=== PATIENT | female | born 1935 | race Caucasian/White ===

== ENCOUNTER 2016-07-01 12:25 | Outpatient (CLI) | payer MEDICARE, OTHER | END 2016-07-01 12:26 | disposition home or self-care (01) | DX: R07.9 Chest pain, unspecified (principal) ==

== ENCOUNTER 2016-07-16 08:54 | Outpatient (CLI) | payer MEDICARE, OTHER ==
--- NOTE | 2016-07-16 10:29 | Ultrasound Report ---
RIGHT UPPER QUADRANT ULTRASOUND: 07/16/2016 CLINICAL INDICATION: Nausea, right-sided pain. TECHNIQUE: Real-time scanning was performed with health and safety representative static images obtained. FINDINGS: The liver measures 12.2 cm. Hepatic echogenicity is mildly heterogeneous. No focal paren chymal lesion or intrahepatic biliary dilatation is appreciated. The common bile duct measures 4 mm. The gallbladder is normal. The right kidney measures 10.1 cm, and demonstrates a small angiomyolip christine and cortical cysts. No hydronephrosis is present. No free fluid is seen. IMPRESSION: NO EVIDENCE OF CHOLELITHIASIS OR BILIARY OBSTRUCTION. JOB #: [id number] EXT JOB #:[id number]
== END 2016-07-16 08:55 | disposition home or self-care (01) ==
LOC: DI 08:54
PROVIDERS: ATTEND Internal Medicine
DX: R11.0 Nausea (principal)
CPT/HCPCS: 76705

== ENCOUNTER 2017-02-08 09:22 | Outpatient (CLI) | payer MEDICARE, OTHER ==
--- NOTE | 2017-02-10 15:52 | Mammography Report ---
DIGITAL SCREENING MAMMOGRAM: 02/08/2017 COMPARISON: 02/07/2016, 02/18/2015, 02/08/2014, 02/14/2013, 02/12/2012, 03/06/2011, 02/13/2010. TECHNIQUE: Bilateral digital CC and MLO projections. FINDINGS: The breast tissue is heterogeneously dense. Post-surgical changes in the right breast and a nodular density in the upper-outer left breast are stable. Vascular calcifications are present. No new dominant mass, architectural distortion, skin thickening, suspicious microcalcifications or in terval change. IMPRESSION: NEGATIVE. BIRADS CATEGORY: 1, NEGATIVE. SUGGEST ROUTINE FOLLOW UP IN 12 MONTHS UNLESS THERE IS A CLINICAL CHANGE. STANDARD QUALIFYING STATEMENTS 1. This examination was reviewed with the aid of Computed-Aided Detection (CAD). 2. A negative or benign imaging report should not delay biopsy if clinically suspicious findings are present. Consider surgical consultation if warranted. More than 5% of cancers are not identified b y imaging. 3. Dense breasts may obscure an underlying neoplasm. JOB #: [id number] EXT JOB #:[id number]
== END 2017-02-08 09:23 | disposition home or self-care (01) ==
LOC: DI.N 09:22
PROVIDERS: ATTEND Internal Medicine
DX: Z12.31 Encounter for screening mammogram for malignant neoplasm of breast (principal)
CPT/HCPCS: 77067

== ENCOUNTER 2018-02-09 10:38 | Outpatient (CLI) | payer MEDICARE, OTHER ==
--- NOTE | 2018-02-10 09:20 | Mammography Report ---
Reason: SCREENING MAMMO Procedure Date: 02/09/2018 Accession Number: [id number] / [id number] Procedure: MGN - Screening Mammo Dig Bilat CPT Code: FULL RESULT: EXAM: Screening Mammo Dig Bilat DATE: 02/09/2018 11:06 AM CLINICAL HISTORY: Screening encounter. History of benign bilateral breast biopsies. TECHNIQUE: Bilateral CC and MLO views were obtained. COMPARISON: 02/08/2017 through 02/08/2014. FINDINGS: The breasts demonstrate heterogeneously dense fibroglandular parenchyma bilaterally. Postsurgical changes are seen in the right breast. Typically benign coarse calcification is noted in the left breast. A well-circumscribed hypodense 1.3 cm mass in the upper outer left breast quadrant remains partially obscured but is stable dating back to 2013 and therefore typically benign. No suspicious masses, clustered microcalcifications, or regions of architectural distortion are identified. IMPRESSION: Benign findings RECOMMENDATION: Routine annual screening unless otherwise clinically indicated. BIRADS CATEGORY 2: Benign findings STANDARD QUALIFYING STATEMENTS: 1. This examination was reviewed with the aid of Computer-Aided Detection (CAD). 2. A negative or benign imaging report should not preclude biopsy if clinically suspicious findings are present. 3. Dense breasts may obscure an underlying neoplasm. 4. This examination was reviewed without the aid of 3D breast imaging (tomosynthesis).
== END 2018-02-09 10:39 | disposition home or self-care (01) ==
LOC: DI.N 10:38
PROVIDERS: ATTEND Internal Medicine
DX: Z12.31 Encounter for screening mammogram for malignant neoplasm of breast (principal)
CPT/HCPCS: 77067

== ENCOUNTER 2019-01-18 11:30 | Day surgery (SDC) | payer MEDICARE, OTHER ==
[2019-01-18] MEDS ORDERED: fentaNYL 250 MCG/5 ML VIAL IVP ONE (11:31)
[2019-01-18] MEDS ORDERED: MIDAZOLAM 2 MG/2 ML VIAL IVP ONE (11:31)
[2019-01-18] MEDS ORDERED: LACTATED RINGERS 1,000 ML IV ONE ×2 (12:08→13:48)
[2019-01-18 15:34] VITALS: BP 115/61
== END 2019-01-18 11:31 | disposition home or self-care (01) ==
LOC: SDS 11:30
PROVIDERS: ATTEND Surgery
PROC: 0DJD8ZZ Inspection of Lower Intestinal Tract, Via Natural or Artificial Opening Endoscopic (ICD-10-PCS; principal; 2019-01-18 13:00)
DX: Z12.11 Encounter for screening for malignant neoplasm of colon (principal); K64.8 Other hemorrhoids; K64.4 Residual hemorrhoidal skin tags; I10 Essential (primary) hypertension; Z80.0 Family history of malignant neoplasm of digestive organs; Z87.891 Personal history of nicotine dependence
CPT/HCPCS: G0105; J3010; J7120

== ENCOUNTER 2019-02-14 10:16 | Outpatient (CLI) | payer MEDICARE, OTHER ==
--- NOTE | 2019-02-14 13:26 | XRAY Report ---
Reason: EXAMINING CUCUM Procedure Date: 02/14/2019 Accession Number: [id number] / [id number] Procedure: FL - Barium Enema w/Air CPT Code: Final Report FULL RESULT: EXAM: BARIUM ENEMA EXAM DATE: 02/14/2019 10:47 AM. CLINICAL HISTORY: Examining cecum. COMPARISONS: 02/14/2019 10:47 AM. TECHNIQUE: Routine double contrast barium enema. Fluoroscopy Time: 52 seconds. Number of Images: 65. FINDINGS: Morphology: Normal distention and anatomy. Colon inadequately visualized from the rectum to the cecum on double contrast phase due to incomplete emptying of the colon. Mucosa: Normal. No diverticula, masses, or strictures. No filling defects evident. Terminal Ileum: Mild ileocecal reflux present. No mucosal abnormalities evident. Other: On supine spot view of the cecum, a circular filling defect is seen near the ileocecal valve, image 38. This may represent a cecal polyp. IMPRESSION: Barium enema suggestive of cecal polyp. RADIA
[2019-02-14] MEDS ORDERED: DIATR MEGLU/DIATRIZOATE SODIUM 120 ML BOTTLE PO ONE (17:19)
[2019-02-14] MEDS ORDERED: BARIUM SULFATE 1,900 ML BOTTLE RC ONE (17:19)
== END 2019-02-14 10:17 | disposition home or self-care (01) ==
LOC: DI 10:16
PROVIDERS: ATTEND Surgery
DX: Z12.11 Encounter for screening for malignant neoplasm of colon (principal)
CPT/HCPCS: 74280; A9270; Q9963

== ENCOUNTER 2019-02-20 10:59 | Outpatient (CLI) | payer MEDICARE, OTHER ==
--- NOTE | 2019-02-20 11:55 | Mammography Report ---
Reason: ROUTINE MAMMO Procedure Date: 02/20/2019 Accession Number: [id number] / [id number] Procedure: MGN - Screening Mammo Dig Bilat CPT Code: Final Report FULL RESULT: EXAM: Screening Mammo Dig Bilat DATE: 02/20/2019 11:28 AM CLINICAL HISTORY: History of bilateral benign biopsies. For routine screening TECHNIQUE: (B) - Bilateral CC and MLO views were obtained. COMPARISON: 02/09/2018, 02/08/2017, 02/07/2016, 02/18/2015, 02/08/2014, 02/14/2013, 02/12/2012, 03/06/2011, 02/13/2010. PARENCHYMAL PATTERN: (D) - The breasts demonstrate heterogeneously dense fibroglandular parenchyma bilaterally. FINDINGS: No significant interval change. There are no suspicious masses, calcifications, or areas of distortion. A nodular density in the upper outer left breast is unchanged. IMPRESSION: Negative examination. BI-RADS category 1. RECOMMENDATION: (ANNUAL) - Recommend routine annual screening mammography. BI-RADS CATEGORY: (1) - Negative. STANDARD QUALIFYING STATEMENTS: 1. This examination was not reviewed with the aid of Computer-Aided Detection (CAD). 2. A negative or benign imaging report should not preclude biopsy if clinically suspicious findings are present. 3. Dense breasts may obscure an underlying neoplasm. 4. This examination was reviewed without the aid of 3D breast imaging (tomosynthesis).
== END 2019-02-20 11:00 | disposition home or self-care (01) ==
LOC: DI.N 10:59
PROVIDERS: ATTEND Internal Medicine
DX: Z12.31 Encounter for screening mammogram for malignant neoplasm of breast (principal)
CPT/HCPCS: 77067

== ENCOUNTER 2021-05-07 08:48 | Outpatient (CLI) | payer MEDICARE, OTHER ==
--- NOTE | 2021-05-08 11:36 | Mammography Report ---
BILATERAL DIGITAL SCREENING MAMMOGRAM 3D/2D: 05/07/2021 CLINICAL: Routine screening. Comparison is made to exams dated: 02/20/2019 mammogram, 02/09/2018 mammogram, 02/08/2017 mammogram, 1 04/09/2015 mammogram, 02/18/2015 mammogram, and 02/08/2014 mammogram - [facility]. Th e tissue of both breasts is heterogeneously dense. This may lower the sensitivity of mammography. There is a benign calcification in the left breast. No significant masses, calcifications, or other findings are seen in either breast. There has been no significant interval change. IMPRESSION: BENIGN There is no mammographic evidence of malignancy. A 1 year screening mammogram is recommended. This exam was interpreted at Station ID: [id number]. NOTE: For mammograms, a report in lay terms will be sent to the patient. Approximately 15% of breast malignancies will not be visualized mammographically. In the management of a palpable breast mass, a negative mammogram must not discourage biopsy of a clinically suspicious lesion. Electronically Signed By: Raven argueta/lucrecia:05/07/2021 09:47:48 ACR BI-RADS Category 2: Benign Finding(s) 3342F PARENCHYMAL PATTERN: (D) - The breast(s) demonstrate(s) heterogeneously dense fibroglandular macy thomas. BI-RADS CATEGORY: (2) - 2 RECOMMENDATION: (ANNUAL) - Recommend routine annual screening mammography. [id number] 1 year screening LATERALITY: (B)
== END 2021-05-07 08:49 | disposition home or self-care (01) ==
LOC: DI.N 08:48
PROVIDERS: ATTEND Internal Medicine
DX: Z12.31 Encounter for screening mammogram for malignant neoplasm of breast (principal)

== ENCOUNTER 2021-07-10 06:59 | Emergency (ER) | payer MEDICARE, OTHER ==
[2021-07-10] MEDS ORDERED: diltiaZEM INJ 5 MG/ML VIAL IVP STA (07:16)
--- NOTE | 2021-07-10 07:19 | ED Physician Documentation ---
PD HPI CHEST PAIN - Stated complaint Stated Complaint: CHEST PAIN - Chief complaint Chief Complaint: Cardiac - History obtained from History obtained from: Patient - Additional information Additional information: This is an 86-year-old woman with history of SVT, PVCs, PACs, and hypercholesterolemia. She has had positive stress test in the past but has been cathed in the past with clean coronaries per her but the last one was in 2008 in [place]. For the last 2-1/2 weeks or so she has had on and off mild chest pressure and shortness of breath. Its been more notable over the last day or so. Has been associated with heavy palpitations. She describes a chest pressure radiating to the back. It is worse with exertion and she is short of breath with it. It is also worse with deep breathing. She has no history of A. fib. Denies pedal edema or calf pain. She does note an injury before this all started, weeks ago she was replacing a light bulb and had to stretch to get up that high. It did not hurt at the time but her symptoms started that evening. Review of Systems Ten Systems: 10 systems reviewed and negative Constitutional: reports: Fatigue. denies: Sweats Nose: reports: Rhinorrhea / runny nose (She did 2 weeks ago but gone) Cardiac: reports: Chest pain / pressure, Palpitations. 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, Hysterectomy HEENT: Cataracts, Tonsil/Adenoidectomy, Other - Present Medications Home Medications: Ambulatory Orders Medication Instructions Recorded Confirmed Aspirin [Aspir 81] 81 mg PO DAILY 05/01/14 07/10/21 Levothyroxine Sodium [Synthroid] 125 mcg PO DAILY 05/01/14 07/10/21 Pravastatin Sodium 20 mg PO DAILY 05/01/14 07/10/21 Dabigatran [Pradaxa] 150 mg PO BID #120 cap 07/10/21 Losartan [Cozaar] 50 mg PO DAILY 07/10/21 07/10/21 diltiaZEM CD [Cardizem Cd] 120 mg PO DAILY #30 cap 07/10/21 - Allergies Allergies/Adverse Reactions: Allergies Allergy/AdvReac Type Severity Reaction Status Date / Time neomycin sulfate * Allergy Rash Verified 07/10/21 07:12 [From Neosporin ([id number])] Latex, Natural Rubber AdvReac Rash Verified 07/10/21 07:12 PD ED PE NORMAL - Vitals Vital signs reviewed: Yes (Rapid and irregular, A. fib on the monitor) - General General: Alert and oriented X 3, No acute distress - HEENT HEENT: PERRL, EOMI - Neck Neck: Supple, no meningeal sign, No bony TTP - Cardiac Cardiac: Other (Rapid and irregular, no murmur) - Respiratory Respiratory: No respiratory distress, Clear bilaterally - Abdomen Abdomen: Normal bowel sounds, Soft, Non tender - Back Back: No CVA TTP, No spinal TTP - Derm Derm: Normal color, Warm and dry - Extremities Extremities: No edema, No calf tenderness / cord - Neuro Neuro: Alert and oriented X 3, Normal speech Results - Vitals Vitals: Vital Signs - 24 hr 07/10/21 07/10/21 07/10/21 07:07 07:25 07:42 Temperature 36.4 C L Heart Rate 123 H 70 77 Respiratory 20 19 Rate Blood Pressure 141/87 H 87/55 L O2 Saturation 98 96 07/10/21 07/10/21 07/10/21 08:03 08:30 08:58 Temperature Heart Rate 80 96 82 Respiratory 18 24 19 Rate Blood Pressure 105/60 102/72 103/63 O2 Saturation 98 97 97 Oxygen O2 Source Room air - EKG (time done) 0708 Rate: Rate (enter#) (123) Rhythm: Atrial fibrillation Gasquet: Normal QRS: Normal Ischemia: Q waves (Q waves anteriorly). No: ST elevation c/w ischemia, ST depression Compare to prior EKG: Unchanged from prior EKG (Q waves are pre-existing compared to last EKG on the chart in 2017; A. fib is new) Computer interpretation: Agree with computer - Labs Labs: Laboratory Tests 07/10/21 07/10/21 07/10/21 07:11 07:11 07:11 WBC 8.7 RBC 3.76 L Hgb 12.0 Hct 35.8 L MCV 95.2 MCH 31.9 H MCHC 33.5 RDW 13.2 Plt Count 288 MPV 10.1 Neut # (Auto) 7.5 H Lymph # (Auto) 0.5 L Reynolds # (Auto) 0.7 Eos # (Auto) 0.0 Baso # (Auto) 0.0 Absolute Nucleated RBC 0.00 Nucleated RBC % 0.0 Sodium 135 Potassium 4.1 Chloride 101 Carbon Dioxide 24 Anion Gap 10.0 BUN 23 H Creatinine 0.6 Estimated GFR (MDRD) 95 Glucose 130 H Calcium 9.3 Magnesium 2.1 Total Bilirubin 1.0 AST 33 ALT 36 Alkaline Phosphatase 62 Troponin I High Sens 6.3 Total Protein 8.5 H Albumin 3.9 Globulin 4.6 H Albumin/Globulin Ratio 0.8 L - Rads (name of study) CT Chest PE protocol Radiology: EMP read contemporaneously PD MEDICAL DECISION MAKING - ED course ED course: 86-year-old woman presents with rapid atrial fibrillation with chest pain radiating to the neck. EKG is not ischemic. She has some old Q waves but these were present on prior EKG in 2017. After the administration of 10 mg of IV diltiazem she was rate controlled in the 80s and 90s but this did not improve her pain particularly. There was a pleuritic nature to her pain and given the new onset A. fib a CT of the chest was done with findings of atelectasis and small pleural effusions but no evidence of PE. Given the time course I think the negative high-sensitivity troponin rules her out for ACS. She was not offered cardioversion as she has been symptomatic for up to 2-1/2 weeks. We will start anticoagulation noting that her CHADS-VASC Score was 4 points. Discussed need for follow-up with PCP and further work-up. Departure - Departure Disposition: Home, Self Care Clinical Impression: Chest pain Qualifiers: Chest pain type: chest pain on breathing Qualified Code(s): R07.1 - Chest pain on breathing Atrial fibrillation Qualifiers: Atrial fibrillation type: unspecified Qualified Code(s): I48.91 - Unspecified atrial fibrillation Condition: Good Record reviewed to determine appropriate education?: Yes Instructions: ED Afib Prescriptions: diltiaZEM CD [Cardizem Cd] 120 mg PO DAILY #30 cap Dabigatran [Pradaxa] 150 mg PO BID #120 cap Comments: You were seen today for chest pain and we noted you to be in new onset atrial fibrillation. Thankfully there is no sign of heart attack. CAT scan showed a little atelectasis and small pleural effusions, but no blood clots. After some oral diltiazem, we got your rate controlled. We are starting a blood thinner in addition to the diltiazem. I sent the prescription for diltiazem and the blood thinner, Pradaxa to the [facility]. You do not need to take anymore diltiazem/AKA Cardizem today. Follow-up with Dr. Dietz, next available appointment. She may want to schedule you for an echocardiogram and or cardiology consultation. Return for new or worsening symptoms. Discharge Date/Time: 07/10/21 09:09
[2021-07-10] MEDS ORDERED: IOPAMIDOL-300 100 ML VIAL ONE (07:28)
[2021-07-10 07:36] LABS: BASOPHILS % (AUTO) 0.2 %; HCT - HEMATOCRIT 35.8 % (37.0-47.0); LYMPHOCYTES # (AUTO) 0.5 10^3/uL (1.5-3.5); LYMPHOCYTES % (AUTO) 5.6 %; MEAN CORPUSCULAR HEMOGLOBIN 31.9 pg (27.0-31.0); MEAN CORPUSCULAR HGB CONC 33.5 g/dL (32.0-36.0); MEAN CORPUSCULAR VOLUME 95.2 fL (81.0-99.0); MEAN PLATELET VOLUME 10.1 fL (7.9-10.8); MONOCYTES # (AUTO) 0.7 10^3/uL (0.0-1.0); MONOCYTES % (AUTO) 7.6 %; NEUTROPHILS # (AUTO) 7.5 10^3/uL (1.5-6.6); NEUTROPHILS % (AUTO) 86.3 %; PLT - PLATELET COUNT 288 10^3/uL (130-450); RED BLOOD COUNT 3.76 10^6/uL (4.20-5.40); RED CELL DISTRIBUTION WIDTH 13.2 % (12.0-15.0); WHITE BLOOD COUNT 8.7 x10^3/uL (4.8-10.8)
[2021-07-10 07:39] LABS: ALBUMIN 3.9 g/dL (3.2-5.5); ALBUMIN/GLOBULIN RATIO 0.8 (1.0-2.2); CALCIUM 9.3 mg/dL (8.5-10.3); CREATININE 0.6 mg/dL (0.4-1.0); MAGNESIUM 2.1 mg/dL (1.7-2.8); POTASSIUM 4.1 mmol/L (3.5-5.0); TOTAL PROTEIN 8.5 g/dL (6.7-8.2)
[2021-07-10] MEDS ORDERED: SODIUM CHLORIDE 0.9% 500 ML IV STA (07:46)
[2021-07-10] MEDS ORDERED: ACETAMINOPHEN 500 MG TABLET PO STA (08:01)
--- NOTE | 2021-07-10 08:36 | CT Report ---
PROCEDURE: ANGIO CHEST W/WO INDICATIONS: dyspnea/cp pe protocol CONTRAST: IV CONTRAST: Isovue 300 ml: 80 PO CONTRAST: *NO PO CONTRAST TECHNIQUE: After the administration of intravenous contrast, 2 mm axial images were acquired from the pulmonary apices to the posterior costophrenic angles during the arterial phase. In addition, 1 mm lung kernel and 5 mm soft tissue kernel reconstructions were performed. 3-dimensional coronal oblique maximum int ensity projection (MIP) reformats, 8 mm axial MIP, and 5 mm coronal and sagittal MPR reformats were t hen performed through the thorax. For radiation dose reduction, the following was used: automated exp osure control, adjustment of mA and/or kV according to patient size. COMPARISON: None FINDINGS: Image quality: Excellent. Pulmonary arteries: Pulmonary arteries are normal in size, and demonstrate no intraluminal filling d efects to suggest central pulmonary embolism. Lungs and pleura: Mild biapical pleural-parenchymal scarring. Small bilateral pleural effusions and m inimal bibasilar atelectasis. No focal pulmonary infiltrates. Central and peripheral airways are abdullahi nt. Mediastinum: Heart size is normal, without pericardial effusion. No mediastinal or hilar adenopathy . Thoracic aorta is normal in caliber and enhancement. Esophagus is normal in caliber, without hiat al hernia. Bones and chest wall: No suspicious bony lesions. Ribs and thoracic spine appear intact throughout. No axillary or supraclavicular adenopathy. Thyroid is grossly unremarkable. Abdomen: Visualized upper abdominal solid organs appear normal in the early arterial phase of enhanc ement. IMPRESSION: 1. No evidence acute pulmonary emboli. 2. Small bilateral pleural effusions and minimal bibasilar atelectasis. CLINICAL RECOMMENDATION STATEMENTS: In patients <35 years with an ITN detected on CT, MRI, or extrathyroidal ultrasound, the Committee re commends further evaluation with dedicated thyroid ultrasound if the nodule is "e1 cm and has no susp icious imaging features, and if the patient has normal life expectancy. In patients "e35 years with an ITN detected on CT, MRI, or extrathyroidal ultrasound, the Committee r ecommends further evaluation with dedicated thyroid ultrasound if the nodule is "e1.5 cm and has no s uspicious imaging features, and if the patient has normal life expectancy. (ACR, 2014) Reviewed by: Tani Olivera MD on 07/10/2021 8:34 AM PDT Approved by: Tani Olivera MD on 07/10/2021 8:34 AM PDT Station ID: [id number]
[2021-07-10] MEDS ORDERED: diltiaZEM CD 120 MG CAPSULE PO STA (08:55)
[2021-07-10 09:00] VITALS: BP 103/63
[2021-07-10] MEDS ORDERED: IOPAMIDOL-300 100 ML VIAL IVP ONE (09:06)
== END 2021-07-10 09:09 | disposition home or self-care (01) ==
LOC: ED 06:59
DX: I48.91 Unspecified atrial fibrillation (principal)
CPT/HCPCS: 36415; 71275; 80053; 83735; 84484; 85025; 93005; 96374; 99284; A9270; Q9967

== ENCOUNTER 2021-07-15 08:00 | Outpatient (CLI) | payer MEDICARE, OTHER ==
[2021-07-15 16:25] LABS: THYROID STIMULATING HORMONE 0.15 uIU/mL (0.34-5.60)
[2021-07-15 16:27] LABS: FREE T3 2.97 pg/mL (2.5-3.9); FREE T4 (FREE THYROXINE) 1.91 ng/dL (0.58-1.64)
== END 2021-07-15 23:59 | disposition home or self-care (01) ==
LOC: LAB.R 08:00
PROVIDERS: ATTEND Internal Medicine
DX: I48.91 Unspecified atrial fibrillation (principal); E03.9 Hypothyroidism, unspecified
CPT/HCPCS: 84439; 84443; 84481

== ENCOUNTER 2021-11-13 14:06 | Outpatient (CLI) | payer MEDICARE, OTHER ==
[2021-11-13 17:42] LABS: BILIRUBIN,URINE NEGATIVE (NEGATIVE); GLUCOSE, URINE (UA) NEGATIVE (NEGATIVE); KETONES,URINE (UA) NEGATIVE (NEGATIVE); LEUKOCYTE ESTERASE, URINE LARGE (NEGATIVE); NITRITE,URINE NEGATIVE (NEGATIVE); OCCULT BLOOD,URINE LARGE (NEGATIVE); PH,URINE 6.5 PH (5.0-7.5); PROTEIN,URINE 30 mg/dL (NEGATIVE); UROBILINOGEN,URINE 0.2 (NORMAL) E.U./dL (NORMAL)
[2021-11-13 18:22] LABS: BACTERIA,URINE Many /HPF (None Seen); CLARITY,URINE CLEAR (CLEAR); SQUAMOUS EPITHELIAL CELL,UR FEW Squamous (<= Few); WBC CLUMPS,URINE PRESENT; WBC,URINE >25 /HPF (0-5)
== END 2021-11-13 14:07 | disposition home or self-care (01) ==
LOC: LAB.N 14:06
PROVIDERS: ATTEND Internal Medicine
DX: R39.9 Unspecified symptoms and signs involving the genitourinary system (principal); R31.9 Hematuria, unspecified
CPT/HCPCS: 81001; 87086

== ENCOUNTER 2022-02-13 08:00 | Outpatient (CLI) | payer MEDICARE, OTHER ==
[2022-02-13 16:07] LABS: BASOPHILS % (AUTO) 0.4 %; EOSINOPHILS % (AUTO) 0.6 %; HCT - HEMATOCRIT 37.8 % (37.0-47.0); HGB - HEMOGLOBIN 12.3 g/dL (12.0-16.0); LYMPHOCYTES % (AUTO) 19.4 %; MEAN CORPUSCULAR HEMOGLOBIN 31.2 pg (27.0-31.0); MEAN CORPUSCULAR HGB CONC 32.5 g/dL (32.0-36.0); MEAN CORPUSCULAR VOLUME 95.9 fL (81.0-99.0); MONOCYTES # (AUTO) 0.5 10^3/uL (0.0-1.0); NEUTROPHILS # (AUTO) 3.6 10^3/uL (1.5-6.6); NEUTROPHILS % (AUTO) 70.6 %; PLT - PLATELET COUNT 217 10^3/uL (130-450); RED BLOOD COUNT 3.94 10^6/uL (4.20-5.40); RED CELL DISTRIBUTION WIDTH 12.9 % (12.0-15.0); WHITE BLOOD COUNT 5.1 x10^3/uL (4.8-10.8)
[2022-02-13 16:34] LABS: ALBUMIN 3.7 g/dL (3.2-5.5); ALBUMIN/GLOBULIN RATIO 1.2 (1.0-2.2); ALKALINE PHOSPHATASE 48 IU/L (42-121); ALT ALANINE AMINOTRANSFERASE 19 IU/L (10-60); AST ASPARTATE AMINOTRANSFERASE 21 IU/L (10-42); BILIRUBIN,TOTAL 0.6 mg/dL (0.2-1.0); BUN - BLOOD UREA NITROGEN 22 mg/dL (6-20); CALCIUM 9.3 mg/dL (8.5-10.3); CARBON DIOXIDE - CO2 27 mmol/L (21-32); CHLORIDE 99 mmol/L (101-111); CHOL/HDL RATIO 2.5 (<4.4); CHOLESTEROL 204 mg/dL; CREATININE 0.6 mg/dL (0.4-1.0); GFR - MDRD 95 (>89); GLUCOSE 81 mg/dL (70-100); HDL CHOLESTEROL 81 mg/dL; LDL CHOLESTEROL,CALCULATED 114 mg/dL; LDL/HDL RATIO 1.4 (<4.4); POTASSIUM 4.3 mmol/L (3.5-5.0); SODIUM 135 mmol/L (135-145); TOTAL PROTEIN 6.8 g/dL (6.7-8.2); TRIGLYCERIDES 44 mg/dL; VLDL CHOLESTEROL 9 mg/dL
== END 2022-02-13 23:59 | disposition home or self-care (01) ==
LOC: LAB 08:00
PROVIDERS: ATTEND Internal Medicine
DX: Z00.00 Encounter for general adult medical examination without abnormal findings (principal); I20.9 Angina pectoris, unspecified; I48.91 Unspecified atrial fibrillation; M81.0 Age-related osteoporosis without current pathological fracture; Z86.010 Personal history of colon polyps; E78.5 Hyperlipidemia, unspecified; I10 Essential (primary) hypertension; E03.9 Hypothyroidism, unspecified; I34.1 Nonrheumatic mitral (valve) prolapse; J30.2 Other seasonal allergic rhinitis; Z79.899 Other long term (current) drug therapy
CPT/HCPCS: 36415; 80053; 80061; 82306; 83721; 84443; 85025

== ENCOUNTER 2022-03-16 09:28 | Outpatient (CLI) | payer MEDICARE, OTHER ==
--- NOTE | 2022-03-16 12:00 | DEXA Report ---
PROCEDURE: Dexa Spine and/or Hip INDICATIONS: OSTEOPOROSIS TECHNIQUE: Dual energy x-ray absorptiometry (DXA) was performed on a [employer] System. Regions measur ed are the AP Spine, femoral neck, and if needed forearm. COMPARISON: DEXA 02/07/2016 FINDINGS: Lumbar Spine: Bone Mineral Density 1.017 g/cm/cm,T score -1.4, osteopenia, decreased by 3.6% when compared to th e exam from 02/07/2016. Left Femoral Neck: Bone Mineral Density 0.660 g/cm/cm, T score -2.7, osteoporosis Left Hip: Bone Mineral Density 0.718 g/cm/cm,T score -2.3, osteopenia, not significantly changed when compared to the exam from 02/07/2016 (T score greater or equal to -1.0: NORMAL) (T score from -1.1 to -2.4: OSTEOPENIA) (T score less than or equal to -2.5 to: OSTEOPOROSIS) Impression: Bone mineral density within the osteoporosis range at the left femoral neck, and the osteopenia range at the left hip and lumbar spine. Density has decreased at the lumbar spine when compared to the exa m from 02/07/2016. Patients with diagnosis of osteoporosis or osteopenia should have regular bone mineral density assess ment. For those eligible for Medicare, routine testing is allowed once every 2 years. Testing frequ ency can be increased for patients who have rapidly progressing disease or for those who are receivin g medical therapy to restore bone mass. Reviewed by: Otf Larose MD on 03/16/2022 11:59 AM PST Approved by: Otf Larose MD on 03/16/2022 11:59 AM PST Station ID: [id number]
== END 2022-03-16 09:29 | disposition home or self-care (01) ==
LOC: DI 09:28
PROVIDERS: ATTEND Internal Medicine
DX: M81.0 Age-related osteoporosis without current pathological fracture (principal)

== ENCOUNTER 2022-09-16 06:35 | Outpatient (CLI) | payer MEDICARE, OTHER | END 2022-09-16 06:36 | disposition home or self-care (01) | LOC: DI 06:35 | PROVIDERS: ATTEND Internal Medicine | DX: I08.1 Rheumatic disorders of both mitral and tricuspid valves (principal) | CPT/HCPCS: 93306 ==

== ENCOUNTER 2023-03-16 09:26 | Outpatient (CLI) | payer MEDICARE, OTHER ==
--- NOTE | 2023-03-30 11:06 | Mammography Report ---
BILATERAL DIGITAL SCREENING MAMMOGRAM 3D/2D: 03/16/2023 CLINICAL: Routine screening. Comparison is made to exams dated: 05/07/2021 mammogram, 02/20/2019 mammogram, 02/09/2018 mammogram, mammogram, 02/07/2016 mammogram, and 02/18/2015 mammogram - [facility]. Both breasts are heterogeneously dense, which may obscure small masses (category c / 51-75% glandular tissue). No significant masses, calcifications, or other findings are seen in either breast. There has been no significant interval change. IMPRESSION: NEGATIVE There is no mammographic evidence of malignancy. A 1 year screening mammogram is recommended. This exam was interpreted at Station ID: [id number]. NOTE: For mammograms, a report in lay terms will be sent to the patient. Approximately 15% of breast malignancies will not be visualized mammographically. In the management of a palpable breast mass, a negative mammogram must not discourage biopsy of a clinically suspicious lesion. Electronically Signed By: Norma Matthews M.D., PH.D eb/penrad:03/29/2023 11:45:12 letter sent: No_Letter ACR BI-RADS Category 1: Negative 3341F PARENCHYMAL PATTERN: (D) - The breast(s) demonstrate(s) heterogeneously dense fibroglandular macy thomas. BI-RADS CATEGORY: (1) - 1 Mammogram [id number] 1 year screening LATERALITY: (B)
== END 2023-03-16 09:27 | disposition home or self-care (01) ==
LOC: DI.N 09:26
PROVIDERS: ATTEND Internal Medicine
DX: Z12.31 Encounter for screening mammogram for malignant neoplasm of breast (principal); R92.333 Mammographic heterogeneous density, bilateral breasts

== ENCOUNTER 2023-12-02 11:56 | Inpatient (IN) ==
[2023-12-02 12:52] LABS: BASOPHILS % (AUTO) 0.8 %; EOSINOPHILS % (AUTO) 0.3 %; HCT - HEMATOCRIT 37.7 % (37.0-47.0); HGB - HEMOGLOBIN 12.9 g/dL (12.0-16.0); LYMPHOCYTES % (AUTO) 26.9 %; MEAN CORPUSCULAR HEMOGLOBIN 31.5 pg (27.0-31.0); MEAN CORPUSCULAR HGB CONC 34.2 g/dL (32.0-36.0); MEAN PLATELET VOLUME 9.8 fL (7.9-10.8); MONOCYTES # (AUTO) 0.8 10^3/uL (0.0-1.0); MONOCYTES % (AUTO) 20.7 %; NEUTROPHILS # (AUTO) 1.9 10^3/uL (1.5-6.6); NEUTROPHILS % (AUTO) 50.5 %; PLT - PLATELET COUNT 271 10^3/uL (130-450); RED CELL DISTRIBUTION WIDTH 13.2 % (12.0-15.0); WHITE BLOOD COUNT 3.7 x10^3/uL (4.8-10.8)
[2023-12-02 13:19] LABS: ALBUMIN/GLOBULIN RATIO 1.3 (1.0-2.2); BILIRUBIN,TOTAL 0.5 mg/dL (0.2-1.0); CALCIUM 9.9 mg/dL (8.5-10.3); CREATININE 1.2 mg/dL (0.6-1.3); POTASSIUM 2.5 mmol/L (3.5-4.5); TOTAL PROTEIN 7.2 g/dL (6.4-8.9)
[2023-12-02] MEDS: SODIUM CHLORIDE 0.9% 1,000 ML IV STA (14:51)
[2023-12-02] MEDS: POTASSIUM CHLOR 10 MEQ/100 ML 10 MEQ/100 ML BAG IV SCH (14:51)
--- NOTE | 2023-12-02 14:51 | ED Physician Documentation ---
PD HPI ABD PAIN - Stated complaint Stated Complaint: DIARRHEA,ABD PX,NAUSEA - Chief complaint Chief Complaint: Abd Pain - History obtained from History obtained from: Patient - Additional information Additional information: 88 yo f with hx intermittent afib on eliquis, sbo in 2006 with rosemary and subseq ventral hernia repair w mesh. 10 days diarrhea scared to eat as that triggers it. no blood no recent abx no fever no travel no sick contact. 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, Hysterectomy HEENT: Cataracts, Tonsil/Adenoidectomy, Other - Present Medications Home Medications: Ambulatory Orders Medication Instructions Recorded Confirmed Aspirin [Aspir 81] 81 mg PO DAILY 05/01/14 07/10/21 Levothyroxine Sodium [Synthroid] 125 mcg PO DAILY 05/01/14 07/10/21 Pravastatin Sodium 20 mg PO DAILY 05/01/14 07/10/21 Dabigatran [Pradaxa] 150 mg PO BID #120 cap 07/10/21 Losartan [Cozaar] 50 mg PO DAILY 07/10/21 07/10/21 diltiaZEM CD [Cardizem Cd] 120 mg PO DAILY #30 cap 07/10/21 - Allergies Allergies/Adverse Reactions: Allergies Allergy/AdvReac Type Severity Reaction Status Date / Time neomycin sulfate * Allergy Rash Verified 12/02/23 12:01 [From Neosporin ([id number])] Latex, Natural Rubber AdvReac Rash Verified 12/02/23 12:01 - Social History Does the pt smoke?: No Smoking Status: Never smoker Does the pt drink ETOH?: No Does the pt have substance abuse?: No - Immunizations Immunizations are current?: Yes PD ED PE NORMAL - Vitals Vital signs reviewed: Yes - General General: Alert and oriented X 3, No acute distress - Cardiac Cardiac: RRR (w some ectopy), No murmur - Respiratory Respiratory: No respiratory distress, Clear bilaterally - Abdomen Abdomen: Other (hyperactive bowel snds nttp) - Neuro Neuro: Alert and oriented X 3 Results - Vitals Vitals: Vital Signs - 24 hr 12/02/23 12/02/23 12:01 14:05 Temperature 36.5 C Heart Rate 81 65 Respiratory 16 18 Rate Blood Pressure 160/78 H 142/64 H O2 Saturation 98 97 Oxygen O2 Source Room air - Labs Labs: Laboratory Tests 12/02/23 12/02/23 12:48 12:48 WBC 3.7 L RBC 4.10 L Hgb 12.9 Hct 37.7 MCV 92.0 MCH 31.5 H MCHC 34.2 RDW 13.2 Plt Count 271 MPV 9.8 Neut # (Auto) 1.9 Lymph # (Auto) 1.0 L Anson # (Auto) 0.8 Eos # (Auto) 0.0 Baso # (Auto) 0.0 Absolute Nucleated RBC 0.00 Nucleated RBC % 0.0 Sodium 133 L Potassium 2.5 L* Chloride 98 L Carbon Dioxide 26 Anion Gap 9.0 BUN 25 H Creatinine 1.2 Estimated GFR (MDRD) 42 L Glucose 109 H Calcium 9.9 Total Bilirubin 0.5 AST 15 ALT 13 Alkaline Phosphatase 52 Total Protein 7.2 Albumin 4.0 Globulin 3.2 Albumin/Globulin Ratio 1.3 Lipase 15 - Rads (name of study) CT abdomen pelvis Relevant Findings:: Final report received, EMP independent interpretation of test PD Medical Decision Making - ED course ED course: This is a julissa and relatively healthy 88-year-old woman who presents with 10 days of diarrhea without recent antibiotic use, travel, camping, or sick contacts. Benign examination with unremarkable vital signs. Lab work is notable for a lymphopenia and pretty significant hypokalemia 2.5. CT showing a low to moderate grade enterocolitis. Stool pending on admit. Spoke with SEMAJ Araujo for observation at 1645. Departure - Departure Disposition: ED Place in Observation Clinical Impression: Diarrhea, Enterocolitis, Hypokalemia Condition: Stable Forms: PCP List
[2023-12-02] MEDS ORDERED: iohexoL-300 100 ML VIAL ONE (15:03)
[2023-12-02] MEDS: iohexoL-300 100 ML VIAL IVP ONE (15:25)
--- NOTE | 2023-12-02 16:31 | CT Report ---
PROCEDURE: Abdomen/Pelvis W INDICATIONS: iv only low abd pain diarrhea CONTRAST: Omni 300 100ml TECHNIQUE: After the administration of intravenous contrast, a CT scan of the abdomen and pelvis was performed. Images were recorded and evaluated at appropriate window settings. Reformats: coronal and sagittal. F or radiation dose reduction, the following was used: automated exposure control, adjustment of mA and /or kV according to patient size. COMPARISON: None. FINDINGS: Image quality: Diagnostic. Lower chest: Bibasilar scarring/atelectasis are seen posteriorly. Heart size is enlarged, no pericard ial effusion. Liver: No solid mass. Gallbladder: No radiopaque stones or wall thickening. Biliary tree: No intrahepatic or extrahepatic dilation, accounting for age. Spleen: No splenomegaly. Pancreas: No pancreatic ductal dilation. Adrenals: No adrenal nodule. Kidneys and ureters: No hydronephrosis. Simple appearing tiny bilateral renal cortical cysts. No enrique l cystic lesion which requires follow up. No solid mass. Stomach, bowel and peritoneum: There is no bowel obstruction. Mild fluid-filled distal small bowel lo ops and colon loops extending to the level of distal sigmoid colon and rectum with mild terminal ilea l wall thickening and questionable colonic wall thickening concerning for low-grade enterocolitis. Th ere is no abscess collection. No extraluminal air to suggest perforation. No peritoneal free fluid or free air. Lymph nodes: No central or retroperitoneal adenopathy. Vessels: No infrarenal aortic aneurysm. Patent portal vein. PELVIS Reproductive organs: Unremarkable. Bladder: No abnormal wall thickening, accounting for underdistention. Pelvic lymph nodes: No pelvic adenopathy by size criteria. Bones: No aggressive osseous abnormality. Severe right worse then left bilateral hip joint osteophyti c changes are seen. Moderate levoscoliosis of lumbar spine centered at L1-2 level. Degenerative disc disease is seen in throughout lumbar spine. No acute vertebral body compression fracture. Other: Left lower anterior abdominal wall defect is seen with herniation sac contains fat only. IMPRESSION: 1. Finding is concerning for low to moderate grade enterocolitis. No evidence of bowel obstruction. N o abscess collection. No free fluid of free air. 2. Simple appearing bilateral renal cysts. No obstructing renal stones or hydronephrosis. 3. Bibasilar dependent atelectasis. Cardiomegaly, no pericardial effusion. Reviewed by: Jomar Ritchie MD on 12/02/2023 4:29 PM PDT Approved by: Jomar Ritchie MD on 12/02/2023 4:29 PM PDT Station ID: [id number]
[2023-12-02] MEDS ORDERED: SODIUM CHLORIDE FLUSH 0.9% 10 ML SYRINGE IVP PRN (16:50)
[2023-12-02] MEDS: POTASSIUM CHLORIDE 20 MEQ TABLET PO STA (17:11)
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
[2023-12-02] MEDS: APIXABAN 5 MG TABLET PO SCH (20:47)
[2023-12-02] MEDS: LACTATED RINGERS 1,000 ML IV SCH (20:49)
[2023-12-02] MEDS: SODIUM CHLORIDE FLUSH 0.9% 10 ML SYRINGE IVP SCH (20:54)
[2023-12-03] MEDS ORDERED: POTASSIUM CHLORIDE 20 MEQ TABLET PO SCH (08:00)
[2023-12-03] MEDS: POTASSIUM CHLORIDE 20 MEQ TABLET PO ONE ×2 (08:08→17:38)
[2023-12-03] MEDS: POTASSIUM CHLOR 10 MEQ/100 ML 10 MEQ/100 ML BAG IV SCH (08:08)
--- NOTE | 2023-12-03 11:27 | PHARMACY PROGRESS NOTE ---
- Best Possible Medication History Admit Date and Time: 12/02/23 1650 Processed by: Pharmacy Medications reviewed in ED?: No Patient Interview: Completed Secondary Source(s): Pharmacy records, Insurance records As the person ultimately responsible for medication therapy, providers are able to order a medication from an existing home medication list in [facility] via the "Reconcile Routine" prior to Confirmation of that medication by bilingual patient support caseworker. Such practice is discouraged except when the physician, in their clinical judgment, deems that a medical need exists for a medication without regard to previous use.
--- NOTE | 2023-12-03 11:57 | Discharge Summary ---
Discharge Plan Problem Reviewed?: Yes Diet: Regular Activity Restrictions: No Restrictions Shower Restrictions: No Driving Restrictions: No No Smoking: If you smoke, Please STOP! Call for help. Disposition: 01 Home, Self Care Condition: Fair Prescriptions: Apixaban [Eliquis] 2.5 mg PO BID 30 Days #60 tab Loperamide [Imodium] 2 mg PO QID PRN 7 Days #28 cap PRN Reason: Diarrhea Potassium Chloride [K-Dur] 40 meq PO BIDWM #4 tablet Instruction Topics: Diarrhea, Hypokalemia Dc Health Concerns: You came into the emergency room because you had overall weakness and diarrhea for 10 days that comes off and on. You were admitted to the observation unit because you had a low potassium level of 2.5. You stated that you had lost 20 pounds and feel weak. You had some right upper quadrant and upper mid stomach that was localized. You described the pain as a clawing sensation. Nothing makes it feel better however eating made the diarrhea worse which is why you were eating so sparingly. You report feeling a lot better today with no chills, nausea, vomiting, coughing, changes to vision, hearing, voice quality, chest pain or chest tightness, shortness of breath and changes in sensations. You were dehydrated due to the diarrhea - we gave you fluids You had low potassium levels due to the diarrhea - we gave you potassium to increase your potassium levels Plan of Treatment: I would like for you to make sure you have adequate oral intake of food and water. I would suggest you drink Coconut water and Body Armor as recommended by the engineering surveyor Care Goals: Make sure to maintain good hydration and nutritional status and continue with your normal medication regimen Additional Instructions or Follow Up instructions: Patient requested a copy of her labs and vital signs and therefore I am a ttaching it to this plan Follow-up with: Balbina Dietz MD [Provider Admit Priv/Credential] -
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
[2023-12-03 12:29] LABS: BILIRUBIN,URINE NEGATIVE (NEGATIVE); GLUCOSE, URINE (UA) NEGATIVE (NEGATIVE); KETONES,URINE (UA) TRACE mg/dL (NEGATIVE); LEUKOCYTE ESTERASE, URINE TRACE (NEGATIVE); NITRITE,URINE NEGATIVE (NEGATIVE); OCCULT BLOOD,URINE NEGATIVE (NEGATIVE); PH,URINE 5.5 PH (5.0-7.5); PROTEIN,URINE NEGATIVE (NEGATIVE); UROBILINOGEN,URINE 0.2 (NORMAL) E.U./dL (NORMAL)
[2023-12-03 12:33] LABS: CLARITY,URINE CLEAR (CLEAR)
[2023-12-03 12:53] LABS: BACTERIA,URINE Moderate /HPF (None Seen); CASTS, URINE 0-2 Hyaline Casts /LPF; CRYSTALS,URINE 6-10 Calcium Oxalate /LPF; EPITHELIAL CELLS,UR FEW Transitional /HPF (<= Few); MUCUS,URINE Few Strands; RBC,URINE 0-5 /HPF (0-5); SQUAMOUS EPITHELIAL CELL,UR MANY Squamous (<= Few)
[2023-12-03 12:56] VITALS: O2SAT 98
[2023-12-03 15:48] VITALS: BP 120/58
[2023-12-03] MEDS: LOPERAMIDE 2 MG CAPSULE PO ONE (17:38)
[2023-12-03] MEDS ORDERED: APIXABAN 2.5 MG TABLET PO SCH (21:00)
[2023-12-04 06:11] LABS: ADENOVIRUS F 40/41 Not Detected (Not Detected); ASTROVIRUS Not Detected (Not Detected); C DIFFICILE TOXIN A/B Not Detected (Not Detected); CAMPYLOBACTER Not Detected (Not Detected); CRYPTOSPORIDIUM Not Detected (Not Detected); CYCLOSPORA CAYETANENSIS Not Detected (Not Detected); ENTAMOEBA HISTOLYTICA Not Detected (Not Detected); ENTEROAGGREGATIVE E COLI Not Detected (Not Detected); ENTEROPATHOGENIC E COLI Not Detected (Not Detected); ENTEROTOXIGENIC E COLI Not Detected (Not Detected); GIARDIA LAMBLIA Not Detected (Not Detected); NOROVIRUS GI/GII Not Detected (Not Detected); PLESIOMONAS SHIGELLOIDES Not Detected (Not Detected); ROTAVIRUS A Not Detected (Not Detected); SALMONELLA Not Detected (Not Detected); SAPOVIRUS Not Detected (Not Detected); SHIGA-TOXIN-PRODUCING E COLI Not Detected (Not Detected); SHIGELLA/ENTEROINVASIVE E COLI Not Detected (Not Detected); VIBRIO Not Detected (Not Detected); VIBRIO CHOLERAE Not Detected (Not Detected); YERSINIA ENTEROCOLITICA Not Detected (Not Detected)
== END 2023-12-03 18:30 | disposition home or self-care (01) ==
LOC: ED 11:56 → MS2 16:50
PROVIDERS: ADMIT Nurse Practitioner Acute Care; ATTEND Nurse Practitioner Acute Care